=== PATIENT | female | born 1990 | race Two or more races ===

== ENCOUNTER 2017-10-17 05:30 | Emergency (ER) | payer MEDICAID ==
[~2017-10-17] VITALS: Ht 162.6 cm; Wt 87.7 kg
[~2017-10-17 05:30] MED LIST: CLIN150C2 PO
[2017-10-17 05:34] VITALS: BP 132/93
[2017-10-17] MEDS ORDERED: ondansetron 4mg rapidly disintigrating tab PO ONE (06:05)
[2017-10-17 06:19] LABS: URINE HCG NEGATIVE (NEG)
[2017-10-17 06:22] LABS: BASOPHILS # (AUTO) 0.1 X10'3 (0-0.2); BASOPHILS % (AUTO) 1.5 % (0-1); EOSINOPHILS # (AUTO) 0.4 X10'3 (0-0.9); EOSINOPHILS % (AUTO) 11.9 % (0-6); HEMOGLOBIN 13.7 g/dl (12.0-16.0); LYMPHOCYTES # (AUTO) 1.2 X10'3 (1.1-4.8); LYMPHOCYTES % (AUTO) 32.5 % (21-51); MEAN CORPUSCULAR HEMOGLOBIN 27.5 PG (27.0-31.0); MEAN CORPUSCULAR HGB CONC 33.4 % (33.0-36.5); MEAN CORPUSCULAR VOLUME 82.5 FL (78-98); MEAN PLATELET VOLUME 8.5 FL (7.4-10.4); MONOCYTES # (AUTO) 0.3 X10'3 (0-0.9); NEUTROPHILS # (AUTO) 1.6 X10'3 (1.8-7.7); NEUTROPHILS % (AUTO) 46.1 % (42-75); PLATELET COUNT 206 X10'3 (140-440); RED BLOOD COUNT 4.96 X10'6 (4.20-5.60); RED CELL DISTRIBUTION WIDTH 14.6 % (11.5-14.5); WHITE BLOOD COUNT 3.6 X10'3 (4.5-11.0)
[2017-10-17 06:22] LABS: CLARITY,URINE Clear (Clear); COLOR,URINE Yellow (Yellow); GLUCOSE, URINE Negative (Neg); KETONES,URINE Negative (Neg); LEUKOCYTE ESTERASE ,URINE Small (Neg); NITRITES, URINE Negative (Neg); OCCULT BLOOD,URINE Negative (Neg); PROTEIN,URINE Negative (Neg)
[2017-10-17 06:35] LABS: UA COLLECTION TYPE CLN CATCH MIDSTREAM
[2017-10-17 06:36] LABS: ALANINE AMINOTRANSFERASE 650 U/L (12-78); ALBUMIN 3.9 G/DL (3.4-5.0); ALKALINE PHOSPHATASE 455 IU/L (46-116); ANION GAP 9 (8-16); ASPARTATE AMINO TRANSFERASE 398 U/L (10-37); BILIRUBIN,TOTAL 2.1 MG/DL (0.1-1.0); BLOOD UREA NITROGEN 3 MG/DL (7-18); BUN/CREATININE RATIO 3.2 (6.6-38.0); CALCIUM 8.8 MG/DL (8.5-10.1); CHLORIDE 101 MMOL/L (99-107); CREATININE 0.95 MG/DL (0.40-0.90); GLUCOSE 102 MG/DL (70-104); POTASSIUM 3.6 MMOL/L (3.5-5.1); SODIUM 135 MMOL/L (135-145); TOTAL CARBON DIOXIDE 25.1 MMOL/L (24-32); TOTAL PROTEIN 7.9 G/DL (6.4-8.2); eGFR 72 ML/MIN
[2017-10-17 06:40] LABS: BACTERIA,URINE 1+ /HPF (Neg); RBC,URINE NONE SEEN /HPF (0-2); SQUAMOUS EPITHELIAL CELL,UR FEW /LPF (FEW); WBC,URINE 0-4 /HPF (0-4)
[2017-10-18] MEDS ORDERED: BACDS PO (12:16)
== END 2017-10-17 08:33 | disposition home or self-care (01) ==
LOC: ER 05:31
DX: R74.8 Abnormal levels of other serum enzymes (principal); Z88.0 Allergy status to penicillin
CPT/HCPCS: 36415; 76700; 80053; 81001; 81025; 85025; 87088; 99285

== ENCOUNTER 2017-10-18 05:18 | Inpatient (IN) | payer MEDICAID ==
[~2017-10-18] VITALS: Ht 162.6 cm; Wt 87.0 kg
[2017-10-18 06:14] LABS: BASOPHILS % (AUTO) 0.9 % (0-1); EOSINOPHILS # (AUTO) 0.4 X10'3 (0-0.9); EOSINOPHILS % (AUTO) 8.7 % (0-6); HEMATOCRIT 39.1 % (35.0-45.0); HEMOGLOBIN 13.1 g/dl (12.0-16.0); LYMPHOCYTES # (AUTO) 1.5 X10'3 (1.1-4.8); LYMPHOCYTES % (AUTO) 31.6 % (21-51); MEAN CORPUSCULAR HEMOGLOBIN 27.5 PG (27.0-31.0); MEAN CORPUSCULAR HGB CONC 33.5 % (33.0-36.5); MEAN CORPUSCULAR VOLUME 82.1 FL (78-98); MEAN PLATELET VOLUME 8.4 FL (7.4-10.4); MONOCYTES # (AUTO) 0.5 X10'3 (0-0.9); MONOCYTES % (AUTO) 11.1 % (2-12); NEUTROPHILS # (AUTO) 2.3 X10'3 (1.8-7.7); NEUTROPHILS % (AUTO) 47.7 % (42-75); PLATELET COUNT 218 X10'3 (140-440); RED BLOOD COUNT 4.77 X10'6 (4.20-5.60); RED CELL DISTRIBUTION WIDTH 14.7 % (11.5-14.5); WHITE BLOOD COUNT 4.7 X10'3 (4.5-11.0)
[2017-10-18] MEDS ORDERED: ondansetron 4mg rapidly disintigrating tab PO ONE (06:20)
[2017-10-18 06:33] LABS: ALANINE AMINOTRANSFERASE 595 U/L (12-78); ALBUMIN 3.7 G/DL (3.4-5.0); ALKALINE PHOSPHATASE 499 IU/L (46-116); ANION GAP 10 (8-16); ASPARTATE AMINO TRANSFERASE 294 U/L (10-37); BLOOD UREA NITROGEN 5 MG/DL (7-18); BUN/CREATININE RATIO 6.2 (6.6-38.0); CHLORIDE 103 MMOL/L (99-107); CREATININE 0.81 MG/DL (0.40-0.90); GLUCOSE 109 MG/DL (70-104); LIPASE 121 U/L (73-393); POTASSIUM 3.8 MMOL/L (3.5-5.1); SODIUM 138 MMOL/L (135-145); TOTAL PROTEIN 7.5 G/DL (6.4-8.2); eGFR 86 ML/MIN
[2017-10-18 07:12] LABS: INR 1.1 INR; PARTIAL THROMBOPLASTIN TIME 28 SECONDS (22-32); PROTHROMBIN TIME 11.4 SECONDS (9.0-12.0)
[2017-10-18] MEDS ORDERED: magnesium hydroxide 30ml (MOM) UD suspension PO PRN (08:50)
[2017-10-18] MEDS ORDERED: NORMAL SALINE IV ONE (08:50)
[2017-10-18] MEDS ORDERED: magnesium 4gm in 100ml NS 100 ML IV PRN (08:50)
[2017-10-18] MEDS ORDERED: magnesium Cl slow-release 64mg tablet PO PRN (08:50)
[2017-10-18] MEDS ORDERED: SINCALIDE IV ONE (08:50)
[2017-10-18] MEDS ORDERED: potassium Cl 40MEQ/NS 500ml 500 ML IV PRN ×2 (08:50)
[2017-10-18] MEDS ORDERED: potassium Cl 20 mEq SR tablet PO PRN ×2 (08:50)
[2017-10-18] MEDS ORDERED: mag hydrox/Alum hydrox/simeth 30ml oral suspension PO PRN (08:50)
[2017-10-18] MEDS ORDERED: magnesium 2GM in 50ml NS 50 ML IV PRN (08:50)
[2017-10-18 09:16] LABS: HCG SERUM QL NEGATIVE
[2017-10-18] MEDS: normal saline 1000ml 1,000 ML IV SCH (09:54)
[2017-10-18] MEDS ORDERED: BACDS PO (12:16)
[2017-10-18 20:00] VITALS: BP 101/55
[2017-10-18] MEDS ORDERED: temazepam 15mg capsule PO PRN (21:00)
[2017-10-19 00:52] VITALS: BP 112/71
[2017-10-19 00:53] VITALS: BP 127/84
[2017-10-19] MEDS: normal saline 1000ml 1,000 ML IV SCH ×3 (01:17→13:50)
[2017-10-19 05:57] LABS: BASOPHILS % (AUTO) 0.9 % (0-1); EOSINOPHILS # (AUTO) 0.3 X10'3 (0-0.9); EOSINOPHILS % (AUTO) 6.3 % (0-6); HEMATOCRIT 36.2 % (35.0-45.0); HEMOGLOBIN 11.8 g/dl (12.0-16.0); LYMPHOCYTES # (AUTO) 1.4 X10'3 (1.1-4.8); LYMPHOCYTES % (AUTO) 27.5 % (21-51); MEAN CORPUSCULAR HEMOGLOBIN 26.9 PG (27.0-31.0); MEAN CORPUSCULAR HGB CONC 32.7 % (33.0-36.5); MEAN CORPUSCULAR VOLUME 82.2 FL (78-98); MEAN PLATELET VOLUME 8.4 FL (7.4-10.4); MONOCYTES # (AUTO) 0.6 X10'3 (0-0.9); MONOCYTES % (AUTO) 11.9 % (2-12); NEUTROPHILS # (AUTO) 2.8 X10'3 (1.8-7.7); NEUTROPHILS % (AUTO) 53.4 % (42-75); PLATELET COUNT 208 X10'3 (140-440); RED CELL DISTRIBUTION WIDTH 14.9 % (11.5-14.5); WHITE BLOOD COUNT 5.2 X10'3 (4.5-11.0)
[2017-10-19 06:58] LABS: ALANINE AMINOTRANSFERASE 604 U/L (12-78); ALBUMIN 3.3 G/DL (3.4-5.0); ALKALINE PHOSPHATASE 461 IU/L (46-116); ANION GAP 11 (8-16); ASPARTATE AMINO TRANSFERASE 333 U/L (10-37); BILIRUBIN,TOTAL 3.1 MG/DL (0.1-1.0); BLOOD UREA NITROGEN 5 MG/DL (7-18); BUN/CREATININE RATIO 5.7 (6.6-38.0); CALCIUM 8.4 MG/DL (8.5-10.1); CHLORIDE 107 MMOL/L (99-107); CREATININE 0.87 MG/DL (0.40-0.90); GLUCOSE 82 MG/DL (70-104); POTASSIUM 3.8 MMOL/L (3.5-5.1); SODIUM 143 MMOL/L (135-145); TOTAL CARBON DIOXIDE 25.1 MMOL/L (24-32); TOTAL PROTEIN 6.6 G/DL (6.4-8.2); eGFR 79 ML/MIN
[2017-10-19] MEDS: ondansetron/PF 4mg/2ml inj IV PRN (07:05)
[2017-10-19] MEDS: pantoprazole 40 MG vial IV SCH (07:05)
[2017-10-19] MEDS: enoxaparin 40mg/0.4ml syringe SQ SCH (07:06)
[2017-10-19 07:25] VITALS: BP 114/63
[2017-10-19] MEDS: K and/or MAG REPLACEMENT MC SCH (08:00)
[2017-10-19 08:13] LABS: HBSAG SCREEN Negative (Negative); HEP A AB, IGM Negative (Negative); HEPATITIS C ANTIBODY 0.1 s/co ratio (0.0-0.9)
[2017-10-19 11:49] VITALS: BP 115/75
[2017-10-19 18:16] LABS: % IRON SATURATION 19 % (11-46); IRON 50 UG/DL (49-151); TOTAL IRON BINDING CAPACITY 261 UG/DL (259-388)
[2017-10-19 19:00] VITALS: BP 100/61
[2017-10-20] VITALS: BP 99/70
[2017-10-20] MEDS: normal saline 1000ml 1,000 ML IV SCH ×2 (00:54→10:50)
[2017-10-20 05:14] LABS: BASOPHILS % (AUTO) 0.8 % (0-1); EOSINOPHILS # (AUTO) 0.4 X10'3 (0-0.9); EOSINOPHILS % (AUTO) 7.4 % (0-6); HEMATOCRIT 35.7 % (35.0-45.0); HEMOGLOBIN 11.8 g/dl (12.0-16.0); LYMPHOCYTES # (AUTO) 1.5 X10'3 (1.1-4.8); LYMPHOCYTES % (AUTO) 27.5 % (21-51); MEAN CORPUSCULAR HEMOGLOBIN 27.1 PG (27.0-31.0); MEAN CORPUSCULAR HGB CONC 33.1 % (33.0-36.5); MEAN CORPUSCULAR VOLUME 81.7 FL (78-98); MEAN PLATELET VOLUME 8.9 FL (7.4-10.4); MONOCYTES # (AUTO) 0.5 X10'3 (0-0.9); MONOCYTES % (AUTO) 8.4 % (2-12); NEUTROPHILS % (AUTO) 55.9 % (42-75); PLATELET COUNT 223 X10'3 (140-440); RED BLOOD COUNT 4.37 X10'6 (4.20-5.60); RED CELL DISTRIBUTION WIDTH 14.9 % (11.5-14.5); WHITE BLOOD COUNT 5.4 X10'3 (4.5-11.0)
[2017-10-20 06:37] LABS: ALANINE AMINOTRANSFERASE 591 U/L (12-78); ALBUMIN/GLOBULIN RATIO 0.9 (1.1-1.5); ALKALINE PHOSPHATASE 455 IU/L (46-116); ANION GAP 10 (8-16); ASPARTATE AMINO TRANSFERASE 244 U/L (10-37); BILIRUBIN,TOTAL 2.9 MG/DL (0.1-1.0); BLOOD UREA NITROGEN 4 MG/DL (7-18); BUN/CREATININE RATIO 4.7 (6.6-38.0); CALCIUM 8.2 MG/DL (8.5-10.1); CHLORIDE 108 MMOL/L (99-107); CREATININE 0.86 MG/DL (0.40-0.90); GLUCOSE 101 MG/DL (70-104); MAGNESIUM 2.1 MG/DL (1.5-2.4); POTASSIUM 3.7 MMOL/L (3.5-5.1); SODIUM 142 MMOL/L (135-145); TOTAL CARBON DIOXIDE 24.1 MMOL/L (24-32); TOTAL PROTEIN 6.3 G/DL (6.4-8.2); eGFR 80 ML/MIN
[2017-10-20] MEDS: pantoprazole 40 MG vial IV SCH (07:07)
[2017-10-20] MEDS: ondansetron/PF 4mg/2ml inj IV PRN (07:07)
[2017-10-20] MEDS: K and/or MAG REPLACEMENT MC SCH (07:16)
[2017-10-20] MEDS: enoxaparin 40mg/0.4ml syringe SQ SCH (07:16)
[2017-10-20 07:19] VITALS: BP 121/75
[2017-10-20] MEDS ORDERED: ONDA4TAB6 PO (11:06)
[2017-10-20 11:21] VITALS: BP 111/70
== END 2017-10-20 13:14 | disposition home or self-care (01) | DRG 251 ==
LOC: ER 05:19 → ED HOLD 08:18 → SUR 3N 12:30
PROVIDERS: ADMIT Internal Medicine; ATTEND Internal Medicine
PROC: CF1C1ZZ Planar Nuclear Medicine Imaging of Hepatobiliary System, All using Technetium 99m (Tc-99m) (ICD-10-PCS; principal; 2017-10-19)
DX: R10.9 Unspecified abdominal pain (principal); R74.8 Abnormal levels of other serum enzymes; T37.0X5A Adverse effect of sulfonamides, initial encounter; Z88.0 Allergy status to penicillin; Z88.1 Allergy status to other antibiotic agents; Y92.89 Other specified places as the place of occurrence of the external cause
CPT/HCPCS: 36415; 74181; 76700; 78226; 80053; 82103; 82390; 82728; 83516; 83540; 83550; 83605; 83690; 83735; 84703; 85025; 85610; 85730; 86255; 86709; 86803; 87040; 87070; 87340; 99285; A9537; C9113; J1650; J2270; J2405; J7030